=== PATIENT | male | born 1985 | race Caucasian/White ===

== ENCOUNTER 2022-12-26 12:32 | Day surgery (SDC) | payer BC ==
[2022-12-25 12:43] VITALS: BMI 43.0
[~2022-12-26 12:32] MED LIST: LACTATED RINGERS 1,000 ML IV SCH; LIDOCAINE 1% (10MG/ML) FOR IV START INTRADERMA PRN
[2022-12-26 12:53] VITALS: TEMP 97.7
[2022-12-26] MEDS: LACTATED RINGERS 1,000 ML IV SCH (12:55)
[2022-12-26] MEDS ORDERED: KETAMINE 10 MG/ML 20 ML VIAL ONE (13:03)
[2022-12-26] MEDS ORDERED: LIDOCAINE 2% INJ 20 MG/ML (2 ML VIAL) ONE (13:03)
[2022-12-26] MEDS ORDERED: GLYCOPYRROLATE 0.2 MG/ML 2 ML VIAL ONE (13:03)
[2022-12-26] MEDS ORDERED: PROPOFOL 10 MG/ML 20 ML VIAL IV ONE (13:03)
[2022-12-26] MEDS ORDERED: MIDAZOLAM 2 MG/2 ML VIAL ONE (13:03)
[2022-12-26] MEDS ORDERED: LIDOCAINE 2% INJ 20 MG/ML INTRATRACH ONE ×2 (13:08→13:10)
--- NOTE | 2022-12-26 13:20 | P.PCN ---
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 Procedure was done under conscious sedation A timeout and a consent was obtained The procedure was done under supervision by [employer]. Anesthetic agents was given by [employer] bedside. After achieving adequate sedation, the flexible scope was introduced to the left nostril and was advanced into the posterior pharynx and later on to the larynx. There was evidence of dynamic obstruction of the upper airways consistent with his underlying history of obstructive sleep apnea. The posterior pharynx, and then the larynx including the epiglottis, arytenoids, vallecula and the vocal cords were all inspected and all of the upper airway structures were anatomically within normal limits. The vocal cord function mobility was within normal. The subglottic trachea was also within normal limits. There was no evidence of any tracheal stenosis and the subglottic area and inspection of the airway using the flexible bronchoscope yielded no significant abnormalities. The entire trachea, bilateral mainstem bronchi, right upper lobe bronchus, bronchus intermedius, right middle lobe bronchus and the right lower lobe bronchus and the various 10 segments on the right and addition to the left upper lobe bronchus and left lower lobe bronchus and the various 8 segments on the left were within normal limits. No evidence of any stenosis. No evidence of any endobronchial lesions or tumors. No evidence of any significant respiratory secretions. Bronchoscope was removed and the patient was transferred to recovery in stable condition.
[2022-12-26 13:37] VITALS: BP 107/69; PULSE 81; RESP 16
== END 2022-12-26 14:15 | disposition home or self-care (01) ==
LOC: ORWHC2ENDO 12:32
PROVIDERS: ATTEND Internal Medicine Critical Care Medicine
DX: J39.8 Other specified diseases of upper respiratory tract (principal); G47.33 Obstructive sleep apnea (adult) (pediatric); E78.5 Hyperlipidemia, unspecified; F90.9 Attention-deficit hyperactivity disorder, unspecified type; F31.9 Bipolar disorder, unspecified; Z88.0 Allergy status to penicillin; Z87.891 Personal history of nicotine dependence; Z79.899 Other long term (current) drug therapy; Z82.49 Family history of ischemic heart disease and other diseases of the circulatory system
CPT/HCPCS: 31623; J2001 ×2; J2250; J2704